=== PATIENT | male | born 1970 | race Hispanic/Latino ===

== ENCOUNTER 2017-05-28 16:22 | Emergency (ER) | payer OTHER ==
[~2017-05-28] VITALS: Ht 170.2 cm; Wt 79.0 kg
[2017-05-28 18:08] VITALS: BP 159/102
[2017-05-28] MEDS ORDERED: LORTAB 10-325 M1 TAB PO (18:21)
[2017-05-28] MEDS ORDERED: FLEXERIL PO (18:21)
== END 2017-05-28 18:36 | disposition home or self-care (01) | DRG 563 ==
LOC: ED 16:22
DX: S93.402A Sprain of unspecified ligament of left ankle, initial encounter (principal); M51.37 Other intervertebral disc degeneration, lumbosacral region; S93.401A Sprain of unspecified ligament of right ankle, initial encounter; M50.321 Other cervical disc degeneration at C4-C5 level; M50.322 Other cervical disc degeneration at C5-C6 level; S40.811A Abrasion of right upper arm, initial encounter; S40.812A Abrasion of left upper arm, initial encounter; W11.XXXA Fall on and from ladder, initial encounter; Y93.89 Activity, other specified; Y92.89 Other specified places as the place of occurrence of the external cause